=== PATIENT | female | born 1965 | race Asian ===

== ENCOUNTER 2016-12-15 20:42 | Emergency (ER) | payer OTHER ==
[~2016-12-15] VITALS: Ht 149.9 cm; Wt 64.0 kg
[~2016-12-15 20:42] MED LIST: AZOP1OP10 BOTH EYES
[2016-12-15 20:50] VITALS: Ht 149.9 cm; Wt 64.0 kg
[2016-12-15] MEDS ORDERED: NAPR-260 PO (23:14)
[2016-12-15] MEDS ORDERED: HYDROCODONE/APAP (5/325) TAB PO ONE ×2 (23:30)
[2016-12-15] MEDS ORDERED: DIPHENHYDRAMINE 50 MG INJ IV ONE (23:30)
[2016-12-15] MEDS ORDERED: METOCLOPRAMIDE 10 MG INJ IV ONE (23:30)
--- NOTE | 2016-12-15 23:48 | ERD ---
ER Documentation Chief Complaint Date/Time DATE: 12/15/16 TIME: 23:48 Chief Complaint PRESSURE LIKE SHAW TODAY; DENIES CP AND PALPITATIONS. NECK TIGHTNESS. (LAZARUS LARIOS PA-C) HPI This is a 51-year-old female presenting to the emergency department complaining of pressure in her head rating it 7 out of 10 since this morning. Patient also complains of tightness and pain in her neck. Patient denies any vomiting, nausea, photophobia, lethargy. She denies chest pain or shortness of breath or palpitations. She has tried Tylenol 500 mg at 5 PM without any relief. Patient denies any history of hypertension (LAZARUS LARIOS PA-C) ROS All systems reviewed and are negative except as per history of present illness. (LAZARUS LARIOS PA-C) Medications Home Meds Active Scripts Meclizine Hcl* (Antivert*) 12.5 Mg Tab, 12.5 MG PO Q6H Y for DIZZINESS, #20 TAB Prov:ALBANIA CHOWDARY PA-C 12/16/16 Hydralazine Hcl* (Hydralazine Hcl*) 25 Mg Tab, 25 MG PO Q6, #30 TAB Prov:ALBANIA CHOWDARY PA-C 12/16/16 Reported Medications Brinzolamide* (Azopt*) 1%-5 Ml Drops.susp, 1 DROP BOTH EYES BID, BOTTLE 07/12/15 Allergies Allergies: Coded Allergies: shellfish derived (Unverified Allergy, Unknown, RASHES, 07/12/15) PMhx/Soc History of Surgery: No (COLONOSCOPY,EGD) Anesthesia Reaction: No Hx Neurological Disorder: No Hx Respiratory Disorders: No Hx Cardiac Disorders: No Hx Psychiatric Problems: No Hx Miscellaneous Medical Probl: Yes (MYOMA, 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) Hx Alcohol Use: No Hx Substance Use: No Hx Tobacco Use: No Smoking Status: Never smoker (LAZARUS LARIOS PA-C) Physical Exam Vitals Vital Signs Date Time Temp Pulse Resp B/P Pulse Ox O2 Delivery O2 Flow Rate FiO2 12/16/16 00:15 20 174/82 12/15/16 23:40 88 176/83 12/15/16 20:50 98.8 102 18 179/84 99 (ALBANIA CHOWDARY PA-C) Physical Exam GENERAL: well-developed/well-nourished, in no apparent distress, non-toxic appearing HENT: NC/AT, bilateral tympanic membrane is normal with good cone of light, nares patent, oropharynx clear without exudates EYES: Conjunctiva normal, PERRLA, EOMI, no nystagmus noted NECK: Supple, no lymphadenopathy PULM: CTA bilaterally, no rales, rhonchi, or wheezing heard CV: Normal S1S2, RRR, good capillary refill GI: Soft, non-distended, normal bowel sounds, non-tender BACK: No midline tenderness, no masses, No CVAT EXT: No clubbing, cyanosis, or edema NEURO: Alert and orientated to person, place, and time. CN II-IIX intact. Gait and coordination were normal. Hand roentgenologist strength were equal and within normal limits SKIN: Intact, normal turgor PSYCH: Normal mood and mentation, patient denied SI (LAZARUS LARIOS PA-C) Results 24 hrs Current Medications Medications (Trade) Dose Ordered Sig/Parminder Route PRN Reason Start Time Stop Time Status Last Admin Dose Admin Acetaminophen/ Hydrocodone Bitart ([place] (5/325)) 2 tab ONCE ONCE PO 12/15/16 23:30 12/15/16 23:30 DC Diphenhydramine HCl (Benadryl) 50 mg ONCE ONCE IV 12/15/16 23:30 12/15/16 23:30 DC Metoclopramide HCl (Reglan) 10 mg ONCE ONCE IV 12/15/16 23:30 12/15/16 23:30 DC Acetaminophen/ Hydrocodone Bitart ([place] (5/325)) 1 tab ONCE ONCE PO 12/15/16 23:30 12/15/16 23:31 DC 12/15/16 23:40 Hydralazine HCl (Apresoline) 25 mg ONCE ONCE PO 12/16/16 02:00 12/16/16 02:01 DC (ALBANIA CHOWDARY PA-C) Procedures/MDM 51-year-old female presents with headache. My differential diagnoses include tension, migraine, and cluster headache, overuse medication headache, subarachnoid hemorrhage, meningitis, stroke. Pain relief was given in the ED with some improvement. Neurology exam was normal, a CT of the head was done results are pending and will be followed up by PIETER Chowdary. If that is normal, patient will be given prescription for naproxen outpatient and discussed to follow-up with primary care physician tomorrow with precautions to return to the ED for any worsening signs or symptoms. If abnormal, VIKI Chowdary will consult supervising physician. In the ED, patient was given [place] 5/325mg. She is hemodynamically stable and neurovascularly intact. Patient's blood pressure was elevated (>120/80) but appears stable without evidence of hypertension emergency or urgency. The patient was counseled about the risks of hypertension and urged to pursue outpatient monitoring and therapy within a week with their primary care physician. (LAZARUS LARIOS PA-C) [place] [address] Radiology Main Line: [phone] DIAGNOSTIC IMAGING REPORT Patient: RAINA DYSON : 1965 Age: 51 Sex: F MR #: [id number] DOS: 12/15/16 2309 Ordering MD: LAZARUS LARIOS PA-C Location: [facility] Room/Bed: PROCEDURE: CT Brain without contrast. CLINICAL INDICATION: headache TECHNIQUE: A CT of the brain was performed on a [employer] 64-slice CT scanner utilizing axial imaging from the skull base through the vertex without IV contrast. Multiplanar reformatted images were made. Images were reviewed on a PACS workstation. The CTDIvol is 45.01 mGy and the DLP is 720.23 mGycm. COMPARISON: None FINDINGS: There is no intracranial hemorrhage, mass effect, or midline shift. No extra- axial fluid collection is seen. The ventricles and sulci are normal in size and configuration. The density of the brain is normal, and the albright white matter differentiation appears well-preserved. The visualized paranasal sinuses and osseous structures are grossly unremarkable. IMPRESSION: 1. No evidence of acute intracranial pathology. 2. The brain is normal in appearance. RPTAT:AAJJ Physician Yoly Date Time Electronically viewed and signed by Physician Yoly on 12/16/2016 00:18 LINUS/ CC: LAZARUS LARIOS PA-C This patient was handed to me pending CT results. I have consulted with Dr. Solo regarding her results and her elevated blood pressure. Low suspicion for intracranial hemorrhage, meningitis, intracranial mass, concussion, temporal arteritis, stroke, elevated intracranial pressure, seizure. She does not show signs of hypertensive urgency, emergency or endorgan damage. Patient is stable and is having a conversation with me speaking in full sentences. Patient is alert and oriented 4. Naprosyn taken out as patient has a history of GERD. Patient will be given 25mg hydrazlazine here in the ED which Dr. Razo agrees with plan. Patient is very concerned about having an emergency and I have spoken to patient and multiple times regarding that there is no emergency or urgency or end organ damage. We have ruled out any emergency with the CT scan. Patient is stable and I do not think she needs to be admitted. Patient is saying that she has an emergency regarding her headache even though I have told her multiple times there is no emergency. Patient continues to complain about her high blood pressure and after speaking with her again, patient states that she did not get a full physical exam and is wanted a full exam. I reexamine patient. GENERAL: Well-developed, well-nourished female. Appears in no acute distress. HEAD: Normocephalic, atraumatic. EYES: Pupils are equally reactive bilaterally. EOMs grossly intact. No conjunctival erythema. No nystagmus ENT: Moist mucous membranes. No uvula deviation. No kissing tonsils. No exudates. Vertigo with movement of head. NECK: Supple. No lymphadenopathy or thyromegaly. No meningismus. negative kernig. negative brudinski. LUNG: Clear to auscultation bilaterally. No rhonchi, wheezing, rales or coarse breath sounds. HEART: Regular rate and rhythm. No murmurs, rubs or gallops. ABDOMEN: No scars, ecchymosis or rashes noted. Soft, nontender, and nondistended. Positive bowel sounds in all four quadrants. No rebound tenderness , no guarding. (-) McBurneys point tenderness. No CVA tenderness. BACK: No midline tenderness. Extremities: Equal pulses bilaterally. No peripheral clubbing, cyanosis or edema. No unilateral leg swelling. NEUROLOGIC: Alert and oriented. Moving all four extremities. 5/5 strength in all extremities. Normal speech. Steady gait. Cranial nerves II through XII intact SKIN: Normal color. Warm and dry. No rashes or lesions. Capillary refill < 2 seconds Patient also has benign positional vertigo. Patient did not mention this at original examination. And states that with movement of her head, she states that she develops vertigo. I will be treating the vertigo out patiently. At this time, patient is stable for discharge and outpatient management with no new complaints during the ER course. Patient was sent home with meclizine, hydralazine. Patient will be discharged home with instructions to recheck for new or worsening symptoms such as fever, nausea, weakness, LOC and to follow up with primary care in the next 1-2 days. Patient was advised to return to the ER for any new or worsening symptoms. Plan was discussed and patient and/or family understands and agrees. Home instructions were given. Patient will be handed to Karyn Guillory pending recheck of blood pressure after hydralazine 25mg given. Patient is stable. (ALBANIA CHOWDARY PA-C) Departure Diagnosis: Primary Impression: Headache Headache type: unspecified Headache chronicity pattern: acute headache Intractability: not intractable Qualified Code: R51 - Acute nonintractable headache, unspecified headache type Condition: Stable Patient Instructions: Self-Care for Headaches, Headache, Unspecified Referrals: DOCTOR,NOT ON STAFF (PCP) your doctor Additional Instructions: FOLLOW UP WITH YOUR PRIMARY CARE PHYSICIAN TOMORROW.Return to this facility if you are not improving as expected. Take all medicines as directed. Return to this facility if you are not improving as expected. LAZARUS LARIOS PA-C Dec 15, 2016 23:48 ALBANIA CHOWDARY PA-C Dec 16, 2016 00:51
--- NOTE | 2016-12-16 00:18 | RADRPT ---
PROCEDURE: CT Brain without contrast. CLINICAL INDICATION: headache TECHNIQUE: A CT of the brain was performed on a [employer] 64-slice CT scanner utilizing axial imaging from the skull base through the vertex without IV contrast. Multiplanar reformatted images were made. Images were reviewed on a PACS workstation. The CTDIvol is 45.01 mGy and the DLP is 720 .23 mGycm. COMPARISON: None FINDINGS: There is no intracranial hemorrhage, mass effect, or midline shift. No extra-axial fluid collection is seen. The ventricles and sulci are normal in size and configuration. The density of the brain is normal, and the albright white matter differentiation appears well-preserved. The visualized paranasal sinuses and osseous structures are grossly unremarkable. IMPRESSION: 1. No evidence of acute intracranial pathology. 2. The brain is normal in appearance. RPTAT:AAJJ Physician Yoly Date Time Electronically viewed and signed by Physician Yoly on 12/16/2016 00:18 LINUS/
[2016-12-16] MEDS ORDERED: EXCED PO (01:14)
[2016-12-16] MEDS ORDERED: HYDR-3671 PO (01:14)
[2016-12-16] MEDS ORDERED: MECL12.574 PO (02:24)
[2016-12-16 03:33] VITALS: BP 136/75; PULSE 88; RESP 20; TEMP 98
== END 2016-12-16 03:34 | disposition home or self-care (01) ==
LOC: FTE 20:42
DX: R51 Headache (principal); R40.2142 Coma scale, eyes open, spontaneous, at arrival to emergency department; R40.2252 Coma scale, best verbal response, oriented, at arrival to emergency department; R40.2362 Coma scale, best motor response, obeys commands, at arrival to emergency department
CPT/HCPCS: 70450; J1200; J2765